=== PATIENT | male | born 1990 | race African-American/Black ===

== ENCOUNTER 2017-02-23 19:26 | Emergency (ER) | payer SELFPAY ==
[~2017-02-23] VITALS: Ht 170.2 cm; Wt 74.6 kg
[~2017-02-23 19:26] MED LIST: Z.0.NO CURRENT MEDS
[2017-02-23 19:28] VITALS: BP 173/124; PULSE 90; RESP 16; TEMP 98.5; O2SAT 97
--- NOTE | 2017-02-23 19:48 | PD ---
Physical Exam Date Seen by Provider: Feb 23, 2017 Time Seen by Provider: 19:47 Narrative 26 yo male that presents to the ED for evaluation of high BP and psychiatric symptoms. Mother provides most of information. Per mother he is more anhedonic and secluded. Not acting himself. Not suicidal. Vitals are stable. Awaiting bed placement. Data Data Last Documented VS Vital Signs Date Time Temp Pulse Resp B/P Pulse Ox O2 Delivery O2 Flow Rate FiO2 02/23/17 19:28 98.5 90 16 173/124 97 Room Air [facility] Medical Record Reviewed: Yes Supervised Visit with ERNESTINA: No Andrey Flores Feb 23, 2017 19:48
[2017-02-23 20:20] VITALS: BP 174/107; PULSE 87; RESP 20; O2SAT 98
[2017-02-23 20:21] VITALS: BP 163/109; PULSE 88; RESP 20; O2SAT 99
--- NOTE | 2017-02-23 20:26 | PD ---
HPI Chief Complaint: Psychiatric Symptoms Time Seen by Provider: 20:10 Travel History International Travel<30 days: No Contact w/Intl Traveler<30days: No Traveled to known affect area: No History of Present Illness HPI This is a 26-year-old male who presents with his mother for voluntary psychiatric evaluation. History is primarily obtained from the mother. The past 8 months the patient has been increasingly depressed and withdrawn isolated socially. He primarily spends most of his time in his room. He communicates much. The mother has been attempting to get an outpatient follow- up with a psychiatrist but the patient has been refusing. Last week she attempted to bring him to the [facility] in order to get a new license so that he could go to [facility] for he refused. Today she called the police and the police convinced him to come here voluntarily for psychiatric evaluation. History from the patient is limited but he denies any psychosocial stressors. He denies any suicidal or homicidal ideation, auditory or visual hallucination, drug or alcohol use. He has no medical complaints at this time. [facility] Past Medical History Depression: Yes Diminished Hearing: No Tetanus Vaccination: > 5 Years Influenza Vaccination: No Past Surgical History Surgical History: No Previous Surgery Social History Alcohol Use: No Tobacco Use: No Substance Use: No Allergies-Medications (Allergen,Severity, Reaction): Coded Allergies: No Known Allergies (Verified , 02/23/17) Reported Meds & Prescriptions Reported Meds & Active Scripts Active Review of Systems ROS Limitations: Refused Except as stated in HPI: all other systems reviewed are Neg Physical Exam Exam Limitations: Refused Narrative GENERAL: Well-developed well-nourished male in no acute distress sitting upright in hospital bed. SKIN: Warm and dry. HEAD: Atraumatic. Normocephalic. EYES: Pupils equal and round. No scleral icterus. No injection or drainage. ENT: No nasal bleeding or discharge. Mucous membranes pink and moist. NECK: Trachea midline. No JVD. CARDIOVASCULAR: Regular rate and rhythm. No murmur appreciated. RESPIRATORY: No accessory muscle use. Clear to auscultation. Breath sounds equal bilaterally. GASTROINTESTINAL: Abdomen soft, non-tender, nondistended. Hepatic and splenic margins not palpable. MUSCULOSKELETAL: No obvious deformities. No clubbing. No cyanosis. No edema. NEUROLOGICAL: Awake and alert. No obvious cranial nerve deficits. Motor grossly within normal limits. Normal speech. PSYCHIATRIC: Somewhat flat affect, poor eye contact. Insight and judgment appear reasonable. Data Data Last Documented VS Vital Signs Date Time Temp Pulse Resp B/P Pulse Ox O2 Delivery O2 Flow Rate FiO2 02/24/17 12:33 97.5 83 18 150/101 100 Room Air Orders Complete Blood Count With Diff (02/23/17 20:16) Comprehensive Metabolic Panel (02/23/17 20:16) Psych Screen (02/23/17 20:16) Drug Screen, Random Urine (02/23/17 20:16) Alcohol (Ethanol) (02/23/17 20:16) Amlodipine (Norvasc) (02/23/17 20:30) Diet Regular Basic (02/24/17 Breakfast) Diet Regular Basic (02/24/17 Lunch) Labs Laboratory Tests Test 02/23/17 20:15 White Blood Count 6.8 TH/MM3 Red Blood Count 5.06 MIL/MM3 Hemoglobin 15.3 GM/DL Hematocrit 45.6 % Mean Corpuscular Volume 90.1 FL Mean Corpuscular Hemoglobin 30.3 PG Mean Corpuscular Hemoglobin 33.6 % Concent Red Cell Distribution Width 13.4 % Platelet Count 245 TH/MM3 Mean Platelet Volume 9.1 FL Neutrophils (%) (Auto) 59.4 % Lymphocytes (%) (Auto) 27.5 % Monocytes (%) (Auto) 11.2 % Eosinophils (%) (Auto) 1.3 % Basophils (%) (Auto) 0.6 % Neutrophils # (Auto) 4.1 TH/MM3 Lymphocytes # (Auto) 1.9 TH/MM3 Monocytes # (Auto) 0.8 TH/MM3 Eosinophils # (Auto) 0.1 TH/MM3 Basophils # (Auto) 0.0 TH/MM3 CBC Comment DIFF FINAL Differential Comment Sodium Level 137 MEQ/L Potassium Level 4.0 MEQ/L Chloride Level 103 MEQ/L Carbon Dioxide Level 29.5 MEQ/L Anion Gap 5 MEQ/L Blood Urea Nitrogen 16 MG/DL Creatinine 0.99 MG/DL Estimat Glomerular Filtration 113 ML/MIN Rate Random Glucose 88 MG/DL Calcium Level 8.6 MG/DL Total Bilirubin 0.9 MG/DL Aspartate Amino Transf 45 U/L (AST/SGOT) Alanine Aminotransferase 49 U/L (ALT/SGPT) Alkaline Phosphatase 60 U/L Total Protein 7.6 GM/DL Albumin 4.0 GM/DL Urine Opiates Screen NEG Urine Barbiturates Screen NEG Urine Amphetamines Screen NEG Urine Benzodiazepines Screen NEG Urine Cocaine Screen NEG Urine Cannabinoids Screen NEG Ethyl Alcohol Level LESS THAN 3 MG/DL MDM Medical Decision Making Medical Screen Exam Complete: Yes Emergency Medical Condition: Yes Medical Record Reviewed: Yes Differential Diagnosis Major depressive disorder, depressive disorder not otherwise specified, adjustment reaction, acute psychosis, substance induced mood disorder Narrative Course 26-year-old male presents voluntarily for evaluation of social isolation and depression for several months duration. Mental health screening discussed with the patient. Psychiatric screen ordered. Incidentally the patient's blood pressure was noted to be elevated in triage. He has no personal history of hypertension but he doesn't have any sort of outpatient follow-up or check his blood pressure was now patient. Discussed the importance of checking blood pressure and a regular basis to establish some sort of baseline blood pressure prior to the initiation of antihypertensive medication. The mother plantar checking his blood pressure 2-3 times per week along with primary care to discuss the results. He will be given a dose of amlodipine here. He is medically cleared for psychiatric disposition. Diagnosis Primary Impression: Depression Qualified Code: F32.9 - Depression, unspecified depression type Bryan Lopez Feb 23, 2017 20:26
[2017-02-23] MEDS ORDERED: amLODIPine BESYLATE 5 MG TAB PO ONE (20:30)
[2017-02-23 20:54] LABS: AUTOMATED NEUTROPHIL # 4.1 TH/MM3 (1.8-7.7); BASOPHIL % 0.6 % (0.0-2.0); EOSINOPHIL # 0.1 TH/MM3 (0-0.4); EOSINOPHIL % 1.3 % (0.0-4.0); HEMATOCRIT 45.6 % (39.0-51.0); HEMO FLAGS DIFF FINAL; LYMPH % 27.5 % (9.0-44.0); LYMPHOCYTE # 1.9 TH/MM3 (1.0-4.8); MEAN CELL VOLUME 90.1 FL (80.0-100.0); MEAN CORPUSCULAR HEMOGLOBIN 30.3 PG (27.0-34.0); MEAN CORPUSCULAR HGB CONC 33.6 % (32.0-36.0); MONO % 11.2 % (0.0-8.0); NEUT % 59.4 % (16.0-70.0); PLATELET COUNT 245 TH/MM3 (150-450); RED BLOOD COUNT 5.06 MIL/MM3 (4.50-5.90); RED CELL DISTRIBUTION WIDTH 13.4 % (11.6-17.2); WHITE BLOOD COUNT 6.8 TH/MM3 (4.0-11.0)
[2017-02-23 21:09] LABS: AMPHETAMINE, URINE NEG (NEG); BARBITURATES, URINE NEG (NEG); COCAINE, URINE NEG (NEG)
[2017-02-23 21:15] VITALS: BP 157/99; PULSE 78; RESP 20; O2SAT 100
[2017-02-23 21:16] LABS: ALT (GPT) 49 U/L (12-78)
[2017-02-23 21:18] LABS: ALKALINE PHOSPHATASE 60 U/L (45-117); TOTAL BILIRUBIN ADULT 0.9 MG/DL (0.2-1.0)
[2017-02-23 21:28] LABS: ANION GAP 5 MEQ/L (5-15); AST (GOT) 45 U/L (15-37); BICARBONATE 29.5 MEQ/L (21.0-32.0); BLOOD UREA NITROGEN 16 MG/DL (7-18); CHLORIDE 103 MEQ/L (98-107); GLOMERULAR FILTRATION RATE 113 ML/MIN (>89); SODIUM (NA) 137 MEQ/L (136-145)
[2017-02-23 23:52] VITALS: BP 159/102; PULSE 71; RESP 20; O2SAT 100
[2017-02-23 23:53] VITALS: BP 157/106; PULSE 70; RESP 20; O2SAT 100
[2017-02-24 06:31] VITALS: BP 154/92; PULSE 66; RESP 20; O2SAT 99
[2017-02-24 08:45] VITALS: BP 156/102; PULSE 76; RESP 16; O2SAT 99
[2017-02-24 12:33] VITALS: BP 150/101; PULSE 83; RESP 18; TEMP 97.5; O2SAT 100
== END 2017-02-24 14:20 | disposition home or self-care (01) ==
LOC: NEPD 19:26 → NEPJ 02-24 14:20
DX: F32.9 Major depressive disorder, single episode, unspecified (principal); R03.0 Elevated blood-pressure reading, without diagnosis of hypertension
CPT/HCPCS: 80053; 80307; 85025; 99284